=== PATIENT | female | born 1950 | race Hispanic/Latino ===

== ENCOUNTER → 2022-01-03 | Outpatient (CLI) | payer MEDICARE, OTHER ==
[~2022-01-03] MED LIST: AMLO-258 PO; ATOR10 PO; CLOP75TA32 PO; FOLI1TAB85 PO; HYDR100T27 PO; INSLAN SQ; INSU100I32 SQ; Isosorbide Mono 30MG Sr Tab PO; METO5TAB2 PO; SYRI-1628 MC
== END | disposition home or self-care (01) ==
LOC: SHCH 13:17
PROVIDERS: ATTEND Internal Medicine Cardiovascular Disease
DX: I65.23 Occlusion and stenosis of bilateral carotid arteries (principal)
CPT/HCPCS: 93880